=== PATIENT | female | born 1985 | race Hispanic/Latino ===

== ENCOUNTER 2017-10-03 02:33 | Inpatient (IN) | payer BC, OTHER ==
[~2017-10-03] VITALS: Ht 162.6 cm; Wt 88.5 kg
[2017-10-03] MEDS ORDERED: LEVO88TA7 PO (02:47)
[2017-10-03 03:10] LABS: APPEARANCE,URINE Clear (CLEAR); BILIRUBIN,URINE Negative (NEGATIVE); COLOR,URINE Yellow (YELLOW); GLUCOSE, URINE (UA) Negative (NEGATIVE); KETONES,URINE Negative (NEGATIVE); LEUKOCYTE ESTERASE ,URINE Small (NEGATIVE); NITRATE,URINE Negative (NEGATIVE); OCCULT BLOOD,URINE Negative (NEGATIVE); PH,URINE 6.5 (5.0-8.0); PROTEIN,URINE Negative (NEGATIVE); UROBILINOGEN,URINE 0.2 mg/dL (0.2-1.0)
[2017-10-03 03:14] LABS: HEMATOCRIT 37.5 % (36-48); MEAN CORPUSCULAR HEMOGLOBIN 29.5 pg (27.0-33.0); MEAN CORPUSCULAR HGB CONC 33.9 g/dL (32.0-36.0); MEAN CORPUSCULAR VOLUME 87.1 fL (79-99); PLATELET COUNT (AUTO) 235 K/uL (130-400); RED CELL DISTRIBUTION WIDTH 14.4 % (11.0-15.5)
[2017-10-03 03:15] VITALS: BP 122/72
[2017-10-03] MEDS ORDERED: LACTATED RINGERS 1000ML 1,000 ML IV SCH (03:15)
[2017-10-03] MEDS ORDERED: CEFAZOLIN SODIUM 1 GM VIAL IVP PRN (03:15)
[2017-10-03] MEDS ORDERED: CALDOLOR 800MG+NS 250ML 250 ML IV PRN (03:15)
[2017-10-03 03:17] LABS: BACTERIA,URINE None Seen /HPF (None Seen); RBC,URINE None Seen /HPF (0-1); SQUAMOUS EPITHELIAL CELL,UR Few /HPF (0-2); WBC,URINE 0-1 /HPF (0-1)
[2017-10-03] MEDS ORDERED: SENSORCAINE/DEXT/PF 0.75% 2ML AMP IJ ONE (03:34)
[2017-10-03] MEDS ORDERED: PHARMACY COMMUNICATION MISC SCH ×2 (04:30→05:45)
[2017-10-03] MEDS ORDERED: LACTATED RINGERS 1000ML 1,000 ML IV ONE ×2 (04:36→08:17)
[2017-10-03] MEDS: OXYTOCIN 10 USP UNITS/ML ONE ×2 (04:36→05:24)
[2017-10-03] MEDS ORDERED: PROMETHAZINE HCL 25 MG/ML 1ML AMPULE IM PRN ×2 (04:45→09:15)
[2017-10-03] MEDS ORDERED: SODIUM CHLORIDE 0.9% 10 ML VIAL IVP PRN (04:45)
[2017-10-03] MEDS ORDERED: DEXTROSE 5 %-0.45 % NACL 1,000 ML IV PRN (04:45)
[2017-10-03] MEDS ORDERED: MEPERIDINE-PF 75 MG/ML SYG IM PRN (04:45)
[2017-10-03] MEDS ORDERED: CALDOLOR 800MG+NS 250ML 250 ML IV ONE (05:01)
[2017-10-03] MEDS ORDERED: OXYTOCIN-LR 20 UNITS/1000 ML 1,000 ML IV PRN (05:25)
[2017-10-03] MEDS ORDERED: BUPIVACAINE IV SCH (06:45)
[2017-10-03] MEDS ORDERED: SODIUM CHLORIDE 0.9% IV SCH (06:45)
[2017-10-03 07:24] LABS: RAPID PLASMA REAGIN NONREACTIVE (NONREACTIVE)
[2017-10-03] MEDS ORDERED: OXYTOCIN 10 USP UNITS/ML ONE (08:17)
[2017-10-03 08:35] VITALS: BP 97/49
[2017-10-03] MEDS ORDERED: HYDROCODONE/ACETAMINOPHEN 5/325 MG TAB ONE (08:55)
[2017-10-03] MEDS ORDERED: MORPHINE SULFATE 2 MG/ML 1ML SYG IVP PRN (09:15)
[2017-10-03] MEDS ORDERED: HYDROCODONE/ACETAMINOPHEN 5/325 MG TAB PO PRN (09:15)
[2017-10-03] MEDS ORDERED: NALOXONE HCL 0.4 MG/1 ML ML IVP PRN ×2 (09:15)
[2017-10-03] MEDS ORDERED: ONDANSETRON HCL 4 MG/2 ML VIAL IVP PRN ×2 (09:15)
[2017-10-03] MEDS ORDERED: EPHEDRINE SULFATE 50 MG/ML AMPULE IVP PRN (09:15)
[2017-10-03] MEDS ORDERED: DiphenhydrAMINE HCL 50 MG/ML VIAL IVP PRN (09:15)
[2017-10-03] MEDS ORDERED: ONDANSETRON HCL 4 MG/2 ML 8 MG in SODIUM CHLORIDE 0.9% 50 ML IVP NR (09:15)
[2017-10-03] MEDS ORDERED: METOCLOPRAMIDE 10 MG/2 ML VIAL IVP PRN (09:15)
[2017-10-03 11:27] VITALS: BP 105/65
[2017-10-03] MEDS: CALDOLOR 800MG+NS 250ML 250 ML IV SCH ×2 (13:38→21:26)
[2017-10-03] MEDS: HYDROCODONE/ACETAMINOPHEN 5/325 MG TAB PO PRN ×2 (13:39→17:57)
[2017-10-03 15:22] VITALS: BP 90/47
[2017-10-03] MEDS: DEXTROSE 5%-LACTATED RINGERS 1,000 ML IV PRN (16:25)
[2017-10-03 19:30] VITALS: BP 90/53
[2017-10-04] VITALS (7 sets, daily range): BP systolic 91–110; BP diastolic 55–67
[2017-10-04] MEDS: HYDROCODONE/ACETAMINOPHEN 5/325 MG TAB PO PRN ×4 (01:29→22:56)
[2017-10-04] MEDS: IBUPROFEN 800 MG TAB PO SCH ×2 (06:13→17:16)
[2017-10-04 06:35] LABS: HEMATOCRIT 28.1 % (36-48); MEAN CORPUSCULAR HEMOGLOBIN 30.2 pg (27.0-33.0); MEAN CORPUSCULAR HGB CONC 34.8 g/dL (32.0-36.0); MEAN CORPUSCULAR VOLUME 86.7 fL (79-99); PLATELET COUNT (AUTO) 176 K/uL (130-400); RED BLOOD CELL COUNT(AUTO) 3.24 MIL/uL (4.00-5.50); RED CELL DISTRIBUTION WIDTH 14.5 % (11.0-15.5); WHITE BLOOD COUNT (AUTO) 9.4 K/uL (4.8-10.8)
[2017-10-04 08:18] LABS: HEPATITIS Bs ANTIGEN SCREEN P Negative (Negative)
[2017-10-04] MEDS: DEXTROSE 5%-LACTATED RINGERS 1,000 ML IV PRN (08:25)
[2017-10-04] MEDS ORDERED: MEASLES/MUMPS/RUBELLA VACCINE, LIVE 0.5 ML/VIAL SQ SCH (11:15)
[2017-10-04] MEDS ORDERED: BISACODYL 10 MG SUPP.RECT RC PRN (11:15)
[2017-10-04] MEDS ORDERED: ACETAMINOPHEN-CODEINE 300/30MG TAB PO PRN (11:15)
[2017-10-04] MEDS ORDERED: DIPH,PERTUSS(ACELL),TET VAC/PF 0.5 ML VIAL IM SCH (11:15)
[2017-10-04] MEDS ORDERED: LANOLIN 30GM OINTMENT TP PRN (11:15)
[2017-10-04] MEDS: SIMETHICONE 80 MG TAB.CHEW PO PRN ×3 (12:22→21:16)
[2017-10-04] MEDS: DOCUSATE SODIUM 100 MG CAP PO SCH (21:00)
[2017-10-05] MEDS: IBUPROFEN 800 MG TAB PO SCH ×2 (01:14→08:25)
[2017-10-05] MEDS: HYDROCODONE/ACETAMINOPHEN 5/325 MG TAB PO PRN (03:36)
[2017-10-05 03:37] VITALS: BP 104/62
[2017-10-05 08:10] VITALS: BP 99/71
[2017-10-05] MEDS: DOCUSATE SODIUM 100 MG CAP PO SCH (08:25)
[2017-10-05] MEDS: SIMETHICONE 80 MG TAB.CHEW PO PRN (08:25)
[2017-10-05 12:05] VITALS: BP 105/71
== END 2017-10-05 12:20 | disposition home or self-care (01) | DRG 766 ==
LOC: EDH 02:33 → LDH 02:34 → OBSVTOIN 03:03 → WSH 08:35
PROVIDERS: ADMIT Specialist; ATTEND Specialist
PROC: 10D00Z1 Extraction of Products of Conception, Low, Open Approach (ICD-10-PCS; principal; 2017-10-03 03:30)
PROC: 3E0234Z Introduction of Serum, Toxoid and Vaccine into Muscle, Percutaneous Approach (ICD-10-PCS; 2017-10-04)
PROC: 3E0134Z Introduction of Serum, Toxoid and Vaccine into Subcutaneous Tissue, Percutaneous Approach (ICD-10-PCS; 2017-10-04)
DX: O34.211 Maternal care for low transverse scar from previous cesarean delivery (principal); O69.81X0 Labor and delivery complicated by cord around neck, without compression, not applicable or unspecified; O99.284 Endocrine, nutritional and metabolic diseases complicating childbirth; E03.9 Hypothyroidism, unspecified; O32.1XX0 Maternal care for breech presentation, not applicable or unspecified; Z37.0 Single live birth; Z3A.38 38 weeks gestation of pregnancy; Z23 Encounter for immunization
CPT/HCPCS: 36415; 59510; 81001; 85027; 86592; 86701; 86850; 86900; 86901; 87340; 87390; 90707; 90715; 99291; A4344; A4450; A4606; J0690; J1741; J2590; J3490; J7120